=== PATIENT | female | born 1995 | race Caucasian/White ===

== ENCOUNTER 2024-01-12 10:55 | Emergency (ER) | payer MEDICARE ==
[~2024-01-12] VITALS: Ht 160 cm; Wt 65.0 kg
[2024-01-12 11:21] VITALS: O2SAT 100
[2024-01-12 12:37] LABS: CLARITY URINE CLOUDY (CLEAR); COLOR URINE DARK YELLOW (YELLOW); GLUCOSE URINE NEGATIVE (NEGATIVE); KETONES URINE 2+ (NEGATIVE); LEUKOCYTE ESTERASE URINE NEGATIVE (NEGATIVE); NITRITE URINE NEGATIVE (NEGATIVE); OCCULT BLOOD URINE NEGATIVE (NEGATIVE); PH URINE 5.5 (4.5-8.0); PROTEIN URINE TRACE (NEGATIVE); SPECIFIC GRAVITY URINE 1.028 (1.005-1.030)
[2024-01-12 13:52] LABS: MUCUS URINE 1+ /lpf (< = 2+); SQUAMOUS EPITHELIAL CELL URINE 3+ /lpf (RARE/1+)
[2024-01-12 13:53] LABS: BACTERIA URINE 1+; RBC URINE 0-2 /hpf (0-2); WBC URINE 0-2 /hpf (0-2)
[2024-01-12 13:54] LABS: YEAST URINE 1+
[2024-01-12] MEDS ORDERED: NAPR220C61 MT (14:28)
[2024-01-12] MEDS ORDERED: MICO24CM2 VG (14:28)
[2024-01-12 16:36] VITALS: BP 127/68; PULSE 67; RESP 18; TEMP 36.78072; O2SAT 100
== END 2024-01-12 17:09 | disposition home or self-care (01) ==
LOC: ER 11:15
DX: N83.202 Unspecified ovarian cyst, left side (principal); B37.9 Candidiasis, unspecified; Z98.890 Other specified postprocedural states
CPT/HCPCS: 76830; 76856; 81003; 81025; 99284